=== PATIENT | female | born 1985 | race African-American/Black ===

== ENCOUNTER 2016-12-17 08:33 | Emergency (ER) | payer OTHER ==
[~2016-12-17] VITALS: Ht 167.6 cm; Wt 55.3 kg
[~2016-12-17 08:33] MED LIST: CIPRO500 MG PO; CLINDAMYCIN HC300 MG PO; FLEXERIL10 MG PO; LORTAB 5-325 M1 EACH PO; MACROBID100 MG PO; MOTRIN600 MG PO; NAPROSYN500 MG PO; NOHOMEMEDS; SLOW RELEASE I160 MG PO; ULTRACET1 TABLET PO; VICODIN 5-5001 EACH PO
[2016-12-17 09:34] LABS: ADD MIUA? NO; BILIRUBIN NEGATIVE; BLOOD NEGATIVE; COLOR STRAW ((YELLOW)); GLUCOSE (STRIP) NEGATIVE; KETONES NEGATIVE; LEUKOCYTES NEGATIVE; NITRITE NEGATIVE; PROTEIN (STRIP) NEGATIVE; SPECIFIC GRAVITY 1.004 (1.000-1.030); UCUL ADDED? NO; UROBILINOGEN 0.2 MG/DL (0.2-1.0)
[2016-12-17 09:54] LABS: HEMATOCRIT 29.2 % (36.0-46.0); MCH 20.6 PG (29.0-34.0); MCHC 30.1 G/DL (30.0-36.0); MCV 68.2 FL (83-99); MEAN PLAT.VOLUME 10.4 uM^3 (9.5-12.4); PLATELET COUNT 235 K/uL (156-360); RBC DIS.WIDTH-CV 18.7 % (11.8-14.6); RBC DIS.WIDTH-SD 46.3 % (39-53); RED BLOOD COUNT 4.28 M/uL (3.80-5.20); WHITE BLOOD COUNT 2.6 K/uL (4.1-10.2)
[2016-12-17 09:59] LABS: CHLORIDE 107 mEq/L (99-109); POTASSIUM 3.5 mEq/L (3.7-5.4); SODIUM 141 mEq/L (136-147)
[2016-12-17 10:00] LABS: GLUCOSE 98 mg/dL (70-99)
[2016-12-17 10:02] LABS: ANION GAP 8 MEQ/L (2-14)
[2016-12-17 10:04] LABS: GFR ESTIMATE (CALCULATED) > 59 mL/min/
[2016-12-17 10:05] LABS: UREA NITROGEN (BUN) 7 mg/dL (9-23)
[2016-12-17 10:14] LABS: QUANTITATIVE HCG < 4.0 MIU/ML
[2016-12-17] MEDS ORDERED: IRON325 M1 PO (10:39)
[2016-12-17 11:07] VITALS: BP 121/74
== END 2016-12-17 11:12 | disposition home or self-care (01) ==
LOC: EME 08:33
PROVIDERS: Emergency Medicine
DX: R55 Syncope and collapse (principal); D50.9 Iron deficiency anemia, unspecified; R11.0 Nausea; R51 Headache
CPT/HCPCS: 80048; 81003; 84702; 85027; 93005; 99281; 99284

== ENCOUNTER 2017-06-29 15:58 | Emergency (ER) | payer OTHER ==
[~2017-06-29] VITALS: Ht 167.6 cm; Wt 52.7 kg
[~2017-06-29 15:58] MED LIST changes: +IRON325 M1 PO
[2017-06-29 16:34] LABS: HEMATOCRIT 36.4 % (36.0-46.0); HEMOGLOBIN 12.2 G/DL (11.9-15.5); MCH 26.3 PG (29.0-34.0); MCHC 33.5 G/DL (30.0-36.0); MCV 78.6 FL (83-99); PLATELET COUNT 196 K/uL (156-360); RBC DIS.WIDTH-CV 13.2 % (11.8-14.6); RBC DIS.WIDTH-SD 37.8 % (39-53); RED BLOOD COUNT 4.63 M/uL (3.80-5.20); WHITE BLOOD COUNT 3.6 K/uL (4.1-10.2)
[2017-06-29 16:46] LABS: CHLORIDE 104 mEq/L (99-109); POTASSIUM 3.6 mEq/L (3.7-5.4); SODIUM 136 mEq/L (136-147)
[2017-06-29 16:47] LABS: GLUCOSE 103 mg/dL (70-99)
[2017-06-29 16:51] LABS: CREATININE 0.9 mg/dL (0.6-1.3); GFR ESTIMATE (CALCULATED) > 59 mL/min/
[2017-06-29 16:52] LABS: UREA NITROGEN (BUN) 9 mg/dL (9-23)
[2017-06-29 18:04] LABS: QUANTITATIVE HCG < 4.0 MIU/ML
[2017-06-29] MEDS ORDERED: CLEOCIN300 MG PO (19:09)
[2017-06-29] MEDS ORDERED: BENTYL10 MG PO (19:09)
[2017-06-29] MEDS ORDERED: ZOFRAN ODT4 MG PO (19:09)
[2017-06-29 19:55] VITALS: BP 132/76
[2017-06-29 19:59] LABS: APPEARANCE SL.HAZY ((CLEAR)); BILIRUBIN NEGATIVE; BLOOD SMALL; COLOR YELLOW ((YELLOW)); GLUCOSE (STRIP) NEGATIVE; KETONES 80; LEUKOCYTES NEGATIVE; NITRITE NEGATIVE; PROTEIN (STRIP) NEGATIVE; SPECIFIC GRAVITY 1.018 (1.000-1.030)
[2017-06-29 20:15] LABS: BACTERIA 1+ /HPF; EPITHELIAL CELLS 1+ /HPF; MUCUS TRACE /LPF; RED BLOOD CELLS 0-5 /HPF (0-5); UCUL ADDED? NO; WHITE BLOOD CELLS 0-5 /HPF (0-5)
== END 2017-06-29 20:07 | disposition home or self-care (01) ==
LOC: EME 15:58
DX: K04.7 Periapical abscess without sinus (principal); J11.1 Influenza due to unidentified influenza virus with other respiratory manifestations; R35.0 Frequency of micturition; R11.2 Nausea with vomiting, unspecified; R10.2 Pelvic and perineal pain; R51 Headache; K03.81 Cracked tooth; Z88.0 Allergy status to penicillin
CPT/HCPCS: 80048; 81003; 84702; 85027; 99281; 99285; J7030

== ENCOUNTER 2017-10-22 12:39 | Emergency (ER) | payer OTHER ==
[~2017-10-22] VITALS: Ht 167.6 cm; Wt 56.1 kg
[~2017-10-22 12:39] MED LIST changes: +BENTYL10 MG PO; +CLEOCIN300 MG PO; +ZOFRAN ODT4 MG PO
[2017-10-22] MEDS ORDERED: MEDROL DOSEPAK4 MG PO (15:55)
[2017-10-22] MEDS ORDERED: CLOTRIMAZOLE15 GM TP (15:55)
[2017-10-22 16:03] VITALS: BP 112/70
== END 2017-10-22 16:03 | disposition home or self-care (01) ==
LOC: EME 12:39
DX: R21 Rash and other nonspecific skin eruption (principal); L29.9 Pruritus, unspecified; Z88.0 Allergy status to penicillin
CPT/HCPCS: 99281; 99283